=== PATIENT | male | born 1950 | race Caucasian/White ===

== ENCOUNTER → 2018-01-30 15:19 | Outpatient (CLI) | payer MEDICARE, OTHER, SELFPAY ==
--- NOTE | 2018-01-30 15:34 | XR_ITS ---
XR chest 2V HISTORY: ITS.REASON: CHEST CONGESTION,SOA ORDERING PHYSICIAN: Eva Hoang PATIENT AGE: 67 years COMPARISON: None available FINDINGS: The cardiomediastinal silhouette and pulmonary vascularity are within normal limits. There is some increased density in the right lung base posteriorly. While this could be due to overlapping vessels, one cannot exclude possibility of a patchy area of pneumonia. The remaining lungs are clear. There is mild amount retained colonic feces. IMPRESSION: Possible right lower lobe infiltrate.
== END ==
PROVIDERS: PCP Nurse Practitioner Family; Visit Provider Nurse Practitioner Family
DX: R06.02 Shortness of breath (principal); R09.89 Other specified symptoms and signs involving the circulatory and respiratory systems
CPT/HCPCS: 71046

== ENCOUNTER → 2018-02-26 11:01 | Outpatient (CLI) | payer MEDICARE, OTHER, SELFPAY ==
--- NOTE | 2018-02-26 11:19 | XR_ITS ---
XR chest 2V HISTORY: Follow-up pneumonia ITS.REASON: PNEUMONIA ORDERING PHYSICIAN: Eva Hoang PATIENT AGE: 67 years COMPARISON: 01/30/2018 FINDINGS: The cardiomediastinal silhouette and pulmonary vascularity are within normal limits. The lungs are clear without infiltrates, suspicious nodules, or pleural effusions. Right lower lobe infiltrate has improved. No acute bony abnormalities. IMPRESSION: Negative chest, no acute finding, improved right lower lobe pneumonia
== END ==
PROVIDERS: PCP Nurse Practitioner; Visit Provider Nurse Practitioner Family
DX: J18.1 Lobar pneumonia, unspecified organism (principal); R06.02 Shortness of breath
CPT/HCPCS: 71046

== ENCOUNTER → 2019-01-06 08:17 | Outpatient (POV) | payer MEDICARE, OTHER, SELFPAY | PROVIDERS: Visit Provider Dermatology | DX: Z00.00 Encounter for general adult medical examination without abnormal findings (principal) ==

== ENCOUNTER 2021-09-07 14:00 | Outpatient (RCR) | payer MEDICARE, OTHER, SELFPAY | END 2021-09-07 14:05 | disposition home or self-care (01) | LOC: PT 14:00 | PROVIDERS: PCP Internal Medicine; Visit Provider Family Medicine | DX: M54.2 Cervicalgia (principal); R20.2 Paresthesia of skin | CPT/HCPCS: 97110; 97163 ==

== ENCOUNTER → 2023-04-02 07:49 | Outpatient (CLI) | payer MEDICARE, OTHER, SELFPAY ==
[2023-04-02 08:30] VITALS: PULSE 69; PULSE 74
== END ==
PROVIDERS: PCP Family Medicine; Visit Provider Internal Medicine Pulmonary Disease
DX: R06.09 Other forms of dyspnea (principal)
CPT/HCPCS: 94060; 94618; 94640; 94726; 94729

== ENCOUNTER 2024-11-03 11:00 | Outpatient (RCR) | payer MEDICARE, OTHER, SELFPAY | END 2024-11-03 23:59 | disposition home or self-care (01) | LOC: OT 11:00 | PROVIDERS: PCP Family Medicine; Visit Provider Family Medicine | DX: M25.511 Pain in right shoulder (principal) | CPT/HCPCS: 97014; 97110; 97140; 97166; 97530; G0283 ==

== ENCOUNTER 2025-06-08 12:28 | Outpatient (CLI) | payer MEDICARE, OTHER, SELFPAY ==
--- OUTSIDE RECORDS SUMMARY | 2025-06-08 12:31 | XMS_ITS | Clinical Summary ---
Author Organization Healthcare Address [address] [place] [address] Care Team Providers Care Supervisor Pigment Making Name Role Phone Justino Zimmerman MD Primary Care Provider [phone] Family History Medical History Relation Name Comments COPD Father Cardiac disorder Father Cardiac disorder Mother Diabetes Mother Relation Name Status Comments Father Mother Social History Tobacco Use Types Packs/Day Years Used Date Smoking Tobacco: Never Sex and Gender Information Value Date Recorded Sex Assigned at Not on file Legal Sex Male 7:32 PM EDT Gender Identity Not on file Sexual Orientation Not on file Last Filed Vital Signs Vital Sign Reading Time Taken Comments Blood Pressure - - Pulse - - Temperature - - Respiratory Rate - - Oxygen Saturation - - Inhaled Oxygen Concentration - - Weight 77.1 kg (170 lb 1 oz) 02/15/2016 4:08 PM EDT Height 171.5 cm (5' 7.5 ) 02/15/2016 4:08 PM EDT Body Mass Index 26.24 02/15/2016 4:08 PM EDT Plan of Treatment Not on file Care Teams Supervisor Pigment Making Relationship Specialty Start Date End Date Justino Zimmerman MD [address] [place] [address] [address] JEVON Jansen [id number] PCP - General 03/17/21
--- OUTSIDE RECORDS SUMMARY | 2025-06-08 12:31 | XMS_ITS | Clinical Summary ---
Author Organization [facility] Address [address] [place] [address] Care Team Providers Care Hacksaw Inspector Name Role Phone Unavailable Primary Care Provider Unavailabl e Social History Tobacco Use Types Packs/Day Years Used Date Smoking Tobacco: Never Assessed Abuse Screen Answer Date Recorded Unsafe at Home or Work/School Not on file Feels Threatened by Someone? Not on file 07/2023 Does Anyone Keep You from Co ntacting Others or Doint Things Outside the Home? Not on file 08/12/2023 Physical Sign of Abuse Present Not on file 1 Housing Stability Answer Date Recorded Current Living Arrangements Not on file 07/2023 Potentially Unsafe Housing Conditions Not on otto e 08/12/2023 Family and Community Support Answer Baldomero e Recorded Help with Day-to-Day Activities Not on file 08/12/2023 Lonely or Isolated Not on file 08/12/2023 Employment Answer Date Recorded Do you want help finding or keeping work or a janis b? Not on file 08/12/2023 Disabilities Answer Date Recorded Concentrating, Remembering, or Making Decisions Difficulty Not on file 08/12/2023 Doing Errands Independently Difficulty Not on fi le 08/12/2023 Education Answer Date Recorded Help with school or training? Not on file Preferred Language Not on file 08/12/2023 Sex and Gender Information Value Date Recorded Sex Assigned at Not on file Legal Sex Male 10:17 AM EDT Gender Identity Not on file Sexual Orientation Not on file Plan of Treatment Health Maintenance Due Date Last Done Comments ANNUAL PHYSICAL 1950 HEPATITIS C SCREENING 1950 TDAP/TD VACCINES (1 - Tdap) 1971 COLOGUARD 1997 COLON CANCER SCREENING 5 YEAR SIGMOIDOSCOPY 1997 COLONOSCOPY 1997 [address] CANCER SCREENING 1997 CT COLONOGRAPHY 1997 FECAL OCCULT BLOOD TEST 1997 FIT Testing (1 year) 1997 Pneumococcal Vaccine 50+ (1 of 1 - PCV) 2002 ZOSTER VACCINE (1 of 2) 2002 AAA SCREEN ONCE 2017 COVID-19 Vaccine (2023- season) 2024 INFLUENZA VACCINE 08/04/2025
== END 2025-06-08 23:59 | disposition home or self-care (01) ==
LOC: RT 12:29
PROVIDERS: PCP Family Medicine; Visit Provider Internal Medicine Pulmonary Disease
DX: R06.09 Other forms of dyspnea (principal); R06.02 Shortness of breath
CPT/HCPCS: 94060; 94618; 94726; 94729